=== PATIENT | male | born 1955 | race Caucasian/White ===

== ENCOUNTER 2017-11-03 07:25 | Emergency (ER) | payer BC, SELFPAY ==
[2017-11-03 07:27] VITALS: BP 140/91; PULSE 61; RESP 18; TEMP 36.6; O2SAT 97; BMI 24.7
--- NOTE | 2017-11-03 07:46 | ED.VISSUMM ---
- ER Visit Summary Date of Service: 11/03/17 Chief Complaint: Right hip pain History of Present Illness: The patient is a 61 M who presents with right hip pain that has been constant for the past 3 days. Patient states the pain is over the posterior aspect of his right hip and radiates to his right ankle. Patient denies any numbness or weakness. Patient denies any bowel or bladder changes. Patient denies any saddle anesthesia. Patient states the pain is sharp and aching. Patient states the pain is worse with certain movements. Patient denies any trauma or injury. Physical Examination: Vital signs are stable. Patient is afebrile. Patient is in no acute distress. Musculoskeletal exam reveals tenderness over the posterior aspect of the right hip over the piriformis muscle. There is no bony crepitance or step-off. There is pain with external rotation of the right lower extremity. There is no deformity noted. There is no lumbar spine tenderness. Pedal pulses are equal bilaterally. There are no sensory deficits noted. Strength is 5/5 bilaterally. Deep tendon reflexes are 1+/4 bilaterally. The remaining physical exam is within normal limits. Emergency Department Course and Treatment: Patient was given injections of Toradol and Norflex here. Patient was given prescription for Flexeril. Patient was instructed use ice to the area. Patient was instructed to continue his ibuprofen and tramadol as needed for pain. Patient was instructed to follow-up with his primary care physician in 5-7 days. Patient understood and was agreeable with the plan. All questions were answered. Disposition: Discharged home Impression: Right piriformis strain, sciatica This note was generated with [employer] dictation software. It may contain incorrect words, spelling, and punctuation that were not noted in review of the chart prior to signing ED Disposition - Plan for ED Patient: Disposition: Home or Assisted Living Chief Complaint: Lower Extremity Injury Diagnosis: Strain of right piriformis muscle, Sciatica of right side Instructions: ED Sprain Hip Prescriptions: Cyclobenzaprine [Flexeril] 10 mg PO QHS PRN PRN 10 Days #10 tab PRN Reason: Muscle Spasm Referrals: Tacho Zambrano III, MD [Primary Care Provider] -
[2017-11-03 07:59] VITALS: PULSE 64; RESP 17; O2SAT 98
[2017-11-03] MEDS: Ketorolac 60 MG/2 ML Vial IM (08:03)
[2017-11-03] MEDS: Orphenadrine 60 MG/2 ML Ampul IM (08:03)
== END 2017-11-03 08:08 | disposition home or self-care (01) ==
PROVIDERS: Emergency Provider Emergency Medicine; Family Provider Family Medicine; PCP Family Medicine
DX: S76.312A Strain of muscle, fascia and tendon of the posterior muscle group at thigh level, left thigh, initial encounter (principal); M54.31 Sciatica, right side; X58.XXXA Exposure to other specified factors, initial encounter; Y93.9 Activity, unspecified; Y92.9 Unspecified place or not applicable; Y99.9 Unspecified external cause status; Z72.0 Tobacco use
CPT/HCPCS: 96372; 99282

== ENCOUNTER 2017-12-12 16:30 | Outpatient (RCR) | payer BC, SELFPAY ==
--- NOTE | 2017-11-14 13:26 | HP.PTEVAL_ITS ---
Patient's Visit Information LUIS BORGES is a 61 year old M referred to Physical Therapy by Tacho Zambrano with a diagnosis of SCIATICA,RIGHT SIDE. Date of Evaluation: 11/14/17 Physical Therapist: Silas Gonzalez PT, - Visit Plan Frequency: 2x /Week Duration: 4 Weeks Plan: modaities for pain releive,progression of grade ROM Shahrzad ex's ,DLS at [employer],postural ex's - Subjective Subjective: This 61 y/o male presents to physical therapy with sciatica right side. Patient has had lumbar pain for about 2weeks affected right buttuck - hamstring calf then anterior tibia. Patient has has lumbar pain with radicular symoms right kleg had MRI 2 years showed buldging /protrusion disc .Patient had lumbar injection s 2years ago. Symptoms worse with sitting,bending,lifting, walking,standing. Symptoms better with MEDS. Coughing /sneezing -.Ocassioanlly parathesia foot. Pain affects sleeping ,patient has been sleeping in recliner .Bowel /bladder good. Patient plan to see pain management end of month. Patient pain affects QOL and unable to return to work.Patient also has seen chiropractor. SOCIAL: single. VOCATION: [employer] - Pain Bilateral Back Pain Intensity (Out of 10): 2 Pain Intensity Range: 10 Right Lower Extremity Pain Intensity (Out of 10): 3 Pain Intensity Range: 10 - Objective POSTURE: mild foward posture ,guared postion. GAIT: normal steph anatigic gait. NEURO: c/o parathesia foot ,reflexes L3-4,L4-5,L5-S1 2/3. SYMMTRIES : pelvis assymtries. MMT: quads/hams 4/5hip 4-/5 ,ankle 4/5. LUMBAR ROM : flexion min/mod loss pain,extension mod,side glides min/mod loss. FLEXABLITRY: hams min loss left ,right min/mod - Special Tests L/S Slump test left side: Negative L/S Slump test right side: Positive L/S Left Straight Leg Raise: Negative L/S Right Straight Leg Raise: Positive Lumbar Standing: Flexion - Mechanical Response: No effect Lumbar Standing: Flexion - Symptoms During Testing: Increases Lumbar Standing: Flexion - Symptoms After Testing: Worse Lumbar Standing: Extension - Mechanical Response: No effect Lumbar Standing: Extension - Symptoms During Testing: Decreases Lumbar Standing: Extension - Symptoms After Testing: No better Lumbar Standing: Right Side Glides - Mechanical Response: No effect Lumbar Standing: Right Side Stanton - Symptoms During Testing: Increases Lumbar Standing: Right Side Stanton - Symptoms After Testing: No worse Lumbar Standing: Left Side Stanton - Mechanical Response: No effect Lumbar Standing: Left Side Stanton - Symptoms During Testing: Increases Lumbar Standing: Left Side Stanton - Symptoms After Testing: No worse Lumbar Lying: Flexion - Mechanical Response: No effect Lumbar Lying: Flexion - Symptoms During Testing: Increases Lumbar Lying: Flexion - Symptoms After Testing: Worse Lumbar Lying: Extension - Mechanical Response: No effect Lumbar Lying: Extension - Symptoms During Testing: Increases Lumbar Lying: Extension - Symptoms After Testing: No worse - Goals Goal 1:: Patient to be Independant with HEP Goal Time Frame: 4-6 Weeks Goal 2:: Patient to Independant with posture for ADL'S Goal Time Frame: 4-6 Weeks Goal 3:: Patient to decrease lumbar radicular symptosm by 50% or greater to improve function Goal Time Frame: 4-6 Weeks Goal 4:: Patient ti improve lumbar ROM for function of recovery Goal Time Frame: 4-6 Weeks Goal 5:: Patient to improve back owestry by 5 points to improve QOL. Goal Time Frame: 4-6 Weeks Goal 6:: Patient be able to return to job demands with min limations Goal Time Frame: 4-6 Weeks - Rehabilitation Potential Physical Therapy Diagnosis: This 61 y/o male presents to physical therapy with derrangemnt below knee with pain with all activity ,postion and movements impirs lumbar ROM,strength,function and return to job demands thus benifit from skilled PT Rehabilitation Potential: Good - Anticipated Interventions Patient/Client Instruction: Educate patient on: Condition, Plan of Care For the Purpose of:: To decrease swelling/inflammation, To increase ROM, To improve muscle performance and motor function, To improve ability to perform ADL 's, To improve performance and independence with ADL's, To decrease level of supervision to perform tasks, To improve health of tissue, To decrease soft tissue restriction, To increase flexibility/ROM, To improve ability to perform tasks related to life management Therapeutic Exercise to Include: Strength training, Body mechanics, Postural training, Flexibilty training, Dynamic Lumbar Stabilization, Shahrzad Exercises For the Purpose of:: To decrease pain, To increase ROM, To improve muscle performance and motor function, To increase tolerance to activity/condition/ position, To improve ability of physical actions for home/community/work/leisure , To improve health of tissue, To decrease soft tissue restriction, To increase flexibility/ROM, To improve ability to perform tasks related to life management TENS: Yes IF ES: Yes Cryotherapy (ice pack, ice massage): Yes Thermo therapy (hot pack): Yes Ultrasound (thermal/non thermal): Yes For the Purpose of:: To decrease pain, To decrease swelling/inflammation, To increase ROM, To improve nutrient delivery to tissue, To increase oxygenation perfusion, To improve health of tissue, To decrease soft tissue restriction Thank you for the opportunity to evaluate your patient. For Medicare and Medicare HMO plans, please review the plan of care and approve it. It will need to be FAXED BACK to us at [phone] for Medicare purposes. Please let me know if there are questions or concerns regarding this plan of care. Physician Signature: Date:
--- NOTE | 2017-12-12 17:05 | HP.PTDCSUM ---
HP - PT D/C Summary It has been my pleasure to treat LUIS BORGES under orders from Tacho Zambrano, for the diagnosis of SCIATICA,RIGHT SIDE for a total of 9 visit(s). Discharge Date: Please see the following information for a summary of their discharge status. - Subjective Subjective: I have only have back pain ,sciatica pain minimal. RTW - Pain Bilateral Back Pain Intensity (Out of 10): 3 Right Lower Extremity Pain Intensity (Out of 10): 0 - Objective Objective/Function: POSTURE: mild foward posture. GAIT:normal steph. MMT: quads/hams 4/5 ,hip 4/5. LUMBAR ROM: flexion WFL ,EXTENSION MIN LOSS. -SLR - Goals Goal 1:: Patient to be Independant with HEP Goal Progress: Goal Met Goal 2:: Patient to Independant with posture for ADL'S Goal Progress: Goal Met Goal 3:: Patient to decrease lumbar radicular symptosm by 50% or greater to improve function Goal Progress: Goal Met Goal 4:: Patient ti improve lumbar ROM for function of recovery Goal Progress: Goal Met Goal 5:: Patient to improve back owestry by 5 points to improve QOL. Goal Progress: Goal Met Goal 6:: Patient be able to return to job demands with min limations - Plan Plan: D/C TO HEP - D/C Information If there are questions or concerns regarding this patient's physical therapy, please feel free to call me at [phone]. Thank you for the referral of this patient. Sincerely, Silas Gonzalez, PT,
== END 2017-12-12 19:00 | disposition home or self-care (01) ==
LOC: PT 16:30
PROVIDERS: Family Provider Family Medicine; PCP Family Medicine; Visit Provider Family Medicine
DX: M54.31 Sciatica, right side (principal)
CPT/HCPCS: 97014; 97035; 97110; 97162; 97530; G0283